=== PATIENT | male | born 1940 | race Caucasian/White ===

== ENCOUNTER 2016-10-07 14:40 | Day surgery (SDC) | payer MEDICARE, OTHER ==
[2016-10-07] MEDS ORDERED: MIDAZOLAM 2 MG/2 ML INJ ONE ×2 (15:28→15:29)
[2016-10-07] MEDS ORDERED: NALOXONE HCL INJ/PF 0.4 MG/1 ML SDV ONE (15:28)
[2016-10-07] MEDS ORDERED: GLUCAGON,HUMAN RECOMB 1 MG INJ ONE (15:29)
[2016-10-07] MEDS ORDERED: EPINEPHRINE INJ 1 MG/10 ML DISP.SYRIN ONE (15:29)
[2016-10-07] MEDS ORDERED: FLUMAZENIL INJ 0.5 MG/5 ML VIAL ONE (15:29)
[2016-10-07] MEDS: FENTANYL CITRATE INJ/PF 100 MCG/2 ML AMPUL ONE ×2 (16:32→16:36)
--- NOTE | 2016-10-07 17:12 | OPERATIVE REPORT E ---
Operative Report NAME: VIBHA SHABAZZ : 1940 AGE: 75Y DATE OF SURGERY: 10/07/2016 ROOM: PREOPERATIVE DIAGNOSES: 1. Abdominal pain. 2. Colon cancer screening. POSTOPERATIVE DIAGNOSIS: Pancolonic diverticulosis. OPERATION: Colonoscopy. SURGEON: THERESA OSEGUERA M.D. MEDICATION: Versed 2 mg, Fentanyl 75 mcg IV push. TISSUE REMOVED OR ALTERED: None. PROCEDURE: After informed consent obtained from the patient, conscious sedation was achieved. The colonoscopy was inserted into the rectum and advanced to the cecum. The appendiceal orifice and terminal ileum were both identified. Cecal mucosa was normal. Multiple wide-mouth diverticula were noted all over the colon. Rectum was normal except for hemorrhoids. He tolerated the procedure well. PLAN: High-fiber diet. No need for another colonoscopy for screening. DICTATING PHYSICIAN: THERESA OSEGUERA M.D. [id number] PHY#: [id number] ID: [id number] JOB#: [id number] ACCT: [id number] cc:[facility], THERESA OSEGUERA M.D. >
--- NOTE | 2016-10-07 17:37 | PDOC DISCHARGE SUMMARY ---
Discharge Summary (SDC) - Discharge Final Diagnosis: Diverticulosis Condition: Stable Forms: Sedation D/C Instructions, Discharge POC-Surgical Service Treatment or Instructions: none Referrals: THERESA OSEGUERA MD [ACTIVE STAFF] - (Keep follow up appointment as scheduled.) Discharge Diet: As Tolerated Respiratory Treatments at Home: Deep Breathing/Coughing Discharge Activity: Activity As Tolerated, Balance Activity w/Rest, No Driving Home Care Assistance: Provided by Family Report the Following to Your Physician Immediately: Shortness of Breath, Nausea , Vomiting, Increase in Pain, Fever over 101 Degrees, Unusual Bleeding, Swelling , Increased Soreness, IV Site Infection Signs
[2016-10-07 17:44] VITALS: BP 163/74
== END 2016-10-07 17:35 | disposition home or self-care (01) ==
LOC: END 14:40
PROVIDERS: ATTEND Internal Medicine Gastroenterology
PROC: 0DJD8ZZ Inspection of Lower Intestinal Tract, Via Natural or Artificial Opening Endoscopic (ICD-10-PCS; principal; 2016-10-07 15:30)
DX: K64.8 Other hemorrhoids (principal); K92.1 Melena; K59.03 Drug induced constipation; I10 Essential (primary) hypertension; E78.00 Pure hypercholesterolemia, unspecified; K21.9 Gastro-esophageal reflux disease without esophagitis; I25.2 Old myocardial infarction; Z79.899 Other long term (current) drug therapy
CPT/HCPCS: 45378; J2250; J3010; J0171; J1610; J2310; J3490